=== PATIENT | male | born 1990 | race Caucasian/White ===

== ENCOUNTER 2019-12-26 13:59 | Emergency (ER) | payer SELFPAY ==
[2019-12-26 14:00] VITALS: BP 131/79; PULSE 99; RESP 17; TEMP 36.6; O2SAT 99; BMI 19.7
[2019-12-26] MEDS: 0.9% Normal Saline 1,000 ML 1000 ML IV (15:01)
[2019-12-26 15:17] LABS: Absolute Neutrophil Count 7.6 X10^3/uL (2.0-7.7); Basophil# 0.03 X10^3/uL; Basophil% 0.3 % (0-1); Eosinophil# 0.04 X10^3/uL; Eosinophils% 0.4 % (0-5); Hematocrit 44.3 % (40-54); Hemoglobin 15.2 g/dL (13.0-16.5); Lymphocyte % 13.9 % (19-41); Mean Corp Hgb Conc 34.3 g/dL (32-36); Mean Corpuscular Hgb 34.5 pg (27.0-32.0); Mean Corpuscular Volume 100.5 fL (80-94); Mean Platelet Vol. 10.1 fl (6.2-12.0); Monocyte# 0.88 X10^3/uL; Monocyte% 8.8 % (0-10); NRBC Flagged by Analyzer 0 % (0-5); Neutrophil # 7.63 X10^3/uL (2.7-7.7); Platelet Count 266 K/mm3 (150-450); RBC Distribution Width CV 10.7 % (11.6-14.6); RBC Distribution Width SD 40.4 fl (35.1-43.9); Red Blood Count 4.41 M/mm3 (4.6-6.2)
[2019-12-26 15:32] LABS: Anion Gap 4 (5-15); BUN 11 mg/dL (7-18); BUN/Creat Ratio 12.4 RATIO (10-20); CPK Total, Creatine Kinase 343 U/L (39-308); Calcium,Total 9.4 mg/dL (8.5-10.1); Chloride 105 mmol/L (98-107); Creatinine, Serum 0.89 mg/dL (0.70-1.30); EST Glomerular Filtration Rate 107 mL/min (>60); Est Glom Filt Rate - Afr Amer 129 mL/min (>60); Estimated Creatinine Clearance 112.27 ml/min; Glucose 102 mg/dL (74-106); Potassium 3.9 mmol/L (3.5-5.1); Sodium Level 139 mmol/L (136-145)
--- NOTE | 2019-12-26 15:38 | ED.VIS.GEN ---
History of Present Illness Chief Complaint: Edema Informant: Patient Onset: Days - 4 to 5 days Context: Gradual Onset Timing: Continuous Quality: Swelling and aching Location: Arms and legs Current Severity: Mild Maximum Severity: Moderate Worsened by: Movement Relieved by: Nothing Associated Symptoms: denies Narrative: 29-year-old male who denies any significant past medical history presents to the emergency department complaining of myalgias and swelling on both arms and legs that is been worsening over the last 4 to 5 days. He states he had a heavy night of drinking for his birthday 5 days ago and since then has had the symptoms. He went to an urgent care earlier this week and was tested for COVID which was negative. Patient has no cough he is not short of breath he denies chest pain or fever denies vomiting or diarrhea he is urinating normally without symptoms and without discoloration. He denies back pain or rash. Denies recent travel or surgery or history of DVT or PE. Denies IV drug abuse. Denies any other review of systems at this time. He has not had any alcohol since that evening 5 days ago Prior similar symptoms: No Recent Illness/Hospitalization: No Past Medical History - Allergies and Home Meds Allergies/Adverse Reactions: Allergies No Known Allergies Allergy (Verified 12/26/19 14:00) Primary Care Physician: Care Physician,No Primary [Primary Care Provider] - Prior records reviewed: Yes Past Medical History: None Surgical History: no surgical history Lives: With Family Smoking Status: Former smoker Alcohol: Occasional Drugs: None Review of Systems All systems negative except as indicated General: Denies: Chills, Fever, Sweats Eyes: Denies: Visual changes - bilaterally, Diplopia ENT: Denies: Rhinorrhea, Sore throat Cardiovascular: Denies: Chest pain, Palpitations Respiratory: Denies: Dyspnea, Cough, Dyspnea on exertion Gastrointestinal: Denies: Abdominal pain, Nausea, Vomiting, Diarrhea, Melena, Hematochezia Genitourinary: Denies: Dysuria, Hematuria, Frequency Musculoskeletal: Reports: Myalgias, Swelling. Denies: Arthralgias, Neck pain, Back pain, Extremity Pain Skin: Denies: Rash, Wounds Neurological: Denies: Headache, Weakness, Numbness Physical Exam Vital Signs/Narrative: Vital Signs Temp Pulse Resp BP Pulse Ox 12/26/19 14:00 97.8 F 99 17 131/79 H 99 Inital Vital Signs reviewed: Yes General: Well nourished, Well developed, No Acute Distress Head: Normocephalic, Atraumatic Eyes: Perrl, EOMI ENT: Moist mucous membranes, No rhinorrhea Neck: Supple, Nontender Cardiovascular: Regular rate, Regular rhythm, No murmurs Respiratory: No distress, CTA bilaterally, Chest nontender Abdomen: Soft, Nontender, Nondistended, Normal bowel sounds Back: Nontender, Normal Inspection Extremities: Nontender, No edema, - - Compartments of the arms and legs are soft he moves all 4 extremities without difficulty no signs of redness or swelling and he has normal sensation and pulses of all 4 extremities as well. Negative for: Tenderness, Edema, Calf Tenderness Skin: Normal color, No rash. Negative for: Jaundice, No Trauma, Pallor, Rash Neurological: Alert, Oriented x3, Cranial nerves II-XII grossly intact, Normal Strength, Normal Sensation, Normal Gait Psychological: Normal affect, Normal Mood Diagnostic/Tx/Re-eval Laboratory Results 12/26/19 12/26/19 15:00 15:00 WBC 10.0 RBC 4.41 L Hgb 15.2 Hct 44.3 MCV 100.5 H MCH 34.5 H MCHC 34.3 RDW Std Deviation 40.4 RDW Coeff of Ruslan 10.7 L Plt Count 266 MPV 10.1 Immature Gran % (Auto) 0.600 Neut % (Auto) 76.0 H Lymph % (Auto) 13.9 L [place] % (Auto) 8.8 Eos % (Auto) 0.4 Baso % (Auto) 0.3 Absolute Neuts (auto) 7.6 Absolute Lymphs (auto) 1.40 Nucleated RBC % 0 Sodium 139 Potassium 3.9 Chloride 105 Carbon Dioxide 30.0 Anion Gap 4 L BUN 11 Creatinine 0.89 Estim Creat Clear Calc 112.27 Est GFR (MDRD) Af Amer 129 Est GFR (MDRD) Non-Af 107 BUN/Creatinine Ratio 12.4 Glucose 102 Calcium 9.4 Total Creatine Kinase 343 H - Medical Decision Making Patient presents with normal stable vital signs and myalgias and swelling of arms and legs. Work-up was pursued. CBC BMP are both unremarkable. CK level is essentially unremarkable as well. He was given IV fluids. He was reassured. At this time he has no unilateral swelling of any of his extremities that would be indicative of a DVT. He has no evidence of compartment syndrome. No evidence of a joint infection. He was reassured. He will continue hydration take anti-inflammatories and follow-up closely with his primary care physician in the next 2 to 3 days or if he develops worsening symptoms he was advised to return to the emergency department ED Disposition - Plan for ED Patient: Disposition: Home or Assisted Living Diagnosis: Myalgia, Edema Instructions: ED ACHING MUSCLES, ED Peripheral Edema, Bilateral Referrals: Brenda Almonte DO [STAFF PHYSICIAN] - 3-5 Days
[2019-12-26 16:22] LABS: Red Blood Cells-Urine 0 SEEN /hpf (0-5)
[2019-12-26 16:25] LABS: Color, Urine Yellow (Yellow); Glucose, Dipstick Normal (Normal); Ketone-Dipstick 5 mg/dl (Negative); Leukocyte Esterase-Dipstick 25 /ul (Negative); Nitrite-Dipstick Negative (Negative); Occult Blood-Urine 10 /ul (Negative); Protein-Dipstick 15 mg/dl (Negative); Urine Bilirubin Dipstick Negative (Negative); Urine Clarity Sl. Cloudy (Clear); Urine Urobilinogen 1 mg/dl (Normal); Urine pH 6.5 (5.0 - 8.0)
[2019-12-26 16:34] VITALS: RESP 16
[2019-12-26 16:47] LABS: Bacteria 1+ /hpf (None Seen); Mucous, Urine 4+ /hpf (<or=2+); Squamous Epithelial Cells - UA 0-5 SEEN /hpf (0-5); White Blood Cells 0-5 SEEN /hpf (0-5)
[2019-12-26 17:07] VITALS: RESP 16
--- NOTE | 2019-12-26 17:07 | ED.RN ---
REVIEWED D/C INSTRUCTIONS, FOLLOW UP CARE, AND S/S THAT WOULD WARRANT A RETURN TO THE ED WITH PT. PT VERBALIZED AN UNDERSTANDING AND DENIES FURTHER QUESTIONS FOR THIS RN. PT SKIN P/W/D, RESP EVEN AND UNLABORED, PT A&OX 3, NO DISTRESS NOTED. PT AMBULATED OUT OF ED, GAIT STEADY.
== END 2019-12-26 17:08 | disposition home or self-care (01) ==
PROVIDERS: Emergency Provider Physician Assistant Medical
DX: M79.89 Other specified soft tissue disorders (principal); M79.18 Myalgia, other site; Z87.891 Personal history of nicotine dependence
CPT/HCPCS: 80048; 81001; 82550; 85025; 96360; 99283; J7030; A4216